=== PATIENT | female | born 1975 | race Caucasian/White ===

== ENCOUNTER → 2016-10-27 | Day surgery (SDC) | payer OTHER ==
[~2016-10-27] VITALS: Ht 165.1 cm; Wt 90.7 kg
[~2016-10-27] MED LIST: 0.9% Sodium Chloride 1,000 ML IV SCH; BUPR150T6 PO; CHOL10008 PO; CITA20TA11 PO; DXM4T PO; FENO160T14 PO; LAMO200T3 PO; METH10TA2 PO; METH20TA35 PO; MULT-64 PO; OMPR20CCR PO; PANT40TA3 PO; QTP25T PO; QUET25TA PO; Sodium Chloride LOK Flush 10 mL Syringe IV PRN; VIC5 PO; fentaNYL-PF 50 mCg/mL 2 mL Inj IVPUSH PRN
[2016-10-27 08:52] VITALS: BP 103/58; PULSE 72; RESP 14; O2SAT 99
[2016-10-27 09:50] VITALS: BP 111/59; PULSE 65; RESP 15; O2SAT 97
[2016-10-27 10:00] VITALS: BP 105/55; PULSE 64; RESP 15; O2SAT 97
[2016-10-27 10:07] VITALS: BP 121/75; PULSE 75; RESP 15; O2SAT 99
--- NOTE | 2016-10-27 13:39 | ENDO ---
[address] [address] ENDOSCOPY PROCEDURE PATIENT: CASEY ROCK : 1975 MR#: [id number] ADMIT: 10/27/2016 JOB ID: [id number] TYPE OF OPERATION: Esophagogastroduodenoscopy (EGD) with biopsy and colonoscopy with hot snare polypectomy. PREOPERATIVE DIAGNOSIS(ES): Gastroesophageal reflux disease (GERD) and rectal bleeding. POSTOPERATIVE DIAGNOSIS(ES): 1. Normal upper endoscopy, status post biopsy. 2. Small internal hemorrhoids. 3. There was a 3 mm sigmoid colon polyp removed by hot snare polypectomy. ANESTHESIA: Fentanyl and Versed 9 mg IV administered. COMPLICATIONS: None. BLOOD LOSS: None. DESCRIPTION OF PROCEDURE: After the risks and benefits were explained to the patient, informed consent was obtained. After anesthesia was administered, the upper endoscope was inserted into mouth, intubating the esophagus, stomach, second portion of duodenum, and the mucosa carefully examined. After the procedure was done, the scope was withdrawn and the procedure terminated. FINDINGS: Upon inspection of the esophagus, the esophagus was normal, without masses, ulcers, or lesions. Z-line located 40 cm from incisors. Upon examination of the stomach, the stomach also appeared normal, without masses, ulcers, or lesions. Retroflexion was normal. Duodenal bulb, first and second portion were normal. Biopsies were taken in the antrum, body, and distal esophagus. Upon inspection of the anus, no masses, hemorrhoids, or fissures that were seen. Throughout the entire examination there was a 3 mm sigmoid polyp, removed by hot snare polypectomy. No other polyps or masses were seen. Intubation of the terminal ileum was also normal. Retroflexion revealed small internal hemorrhoids. IMPRESSIONS: 1. Small internal hemorrhoids. 2. Normal upper endoscopy status post biopsy. 3. A 3 mm sigmoid polyp, removed by hot snare polypectomy. RECOMMENDATION: Await pathology results. If tubular adenoma, then repeat colonoscopy in five years. Follow up in [facility] Clinic as needed. [facility]
--- NOTE | 2016-10-31 17:13 | PATH ---
SURGICAL PATHOLOGY Attending Physician:Braden Hamilton MD CASE STATUS: Signed Out PATIENT NAME: CASEY ROCK PID: [id number] : 1975 DATE COLLECTED:10/27/2016 22:28 SPECIMEN: 1: Stomach, Antrum, Biopsy 2: Gastric, Biopsy 3: Esophagus, Biopsy 4: Colon, Polyp CLINICAL HISTORY: 1). ANTRUM BIOPSY 2). GASTRIC BODY BIOPSY, RULE OUT H.PYLORI 3). DISTAL ESOPHAGUS BIOPSY 4). SIGMOID COLON POLYP FINAL DIAGNOSIS: 1. Antrum, Biopsy: Gastric antral mucosa with chronic gastritis. Negative for Helicobacter organisms by immunohistochemistry. Negative for intestinal metaplasia, dysplasia or malignancy. 2. Gastric Body, Biopsy: Gastric body mucosa with no diagnostic abnormality. Helicobacter organisms not identified. Negative for intestinal metaplasia, dysplasia or malignancy. 3. Distal Esophagus, Biopsy: Squamous mucosa with no diagnostic abnormality. Intraepithelial eosinophils are not increased. Negative for dysplasia or malignancy. 4. Sigmoid Colon Polyp, Biopsy: Hyperplastic polyp. ICD10: K21.0 GROSS DESCRIPTION: The specimen is received in four formalin filled containers labeled with the patient's name. 1). The specimen is labeled "antrum" and consists of 2 portions of tissue which aggregate to 0.3 x 0.2 x 0.2 CM. The specimen is entirely submitted in cassette 1A. 2). The specimen is labeled "gastric body" and consists of 2 portions of tissue which aggregate to 0.3 x 0.3 x 0.3 CM. The specimen is entirely submitted in cassette 2A. 3). The specimen is labeled "distal esophagus" and consists of 2 portions of tissue which aggregate to 0.2 x 0.2 x 0.2 CM. The specimen is entirely submitted in cassette 3A. 4). The specimen is labeled "sigmoid colon polyp" and consists of a 0.2 x 0.2 x 0.2 CM portion of tissue which is entirely submitted in cassette 4A. 10/27/2016DC MICRO DESCRIPTION: Part 1: An immunohistochemical stain was performed to evaluate for Helicobacter organisms and is negative. A control stain showed appropriate reactivity. * This test was developed and its performance characteristics determined by [employer]. It has not been cleared or approved by the U.S. Food and Drug Administration. The FDA has determined that such clearance or approval is not necessary. This test is used for clinical purposes. It should not be regarded as investigational or for research. ICD-9 CODES: CPT CODES: 1: 88283, 17499 2: 09540 3: 73033 4: 87941 Electronically Signed Out Jose Noel MD, Ph.D. [facility] [address], [place] [address] Technical component performed at [facility], [address], [place], [address]
== END | disposition home or self-care (01) ==
LOC: END 01:02
PROVIDERS: ATTEND Internal Medicine Gastroenterology
DX: K63.5 Polyp of colon (principal); K64.8 Other hemorrhoids; K29.50 Unspecified chronic gastritis without bleeding; K62.5 Hemorrhage of anus and rectum; E78.1 Pure hyperglyceridemia; F31.9 Bipolar disorder, unspecified; Z79.899 Other long term (current) drug therapy
CPT/HCPCS: 43239; 45385; 88305; 99153; G0500; J2250; J3010; J7030